=== PATIENT | male | born 1965 | race Caucasian/White ===

== ENCOUNTER 2018-12-14 21:36 | Emergency (ER) | payer SELFPAY ==
[2018-12-14 21:42] VITALS: BP 133/69; PULSE 78; RESP 16; TEMP 37.2; O2SAT 96
--- NOTE | 2018-12-14 21:54 | W.ED.GENAD ---
Discharge Plan Disposition Patient Disposition: HOME Condition: Improving Discharge Details Chief Complaint: Trauma Clinical Impression: Concussion, Contusion of back, Contusion of foot Primary Care Provider: Jim Santana. ED Provider: Josue Kelly Discharge Instructions Instructions: Concussion (ED), Contusion in Adults (ED) Additional Instructions: You were seen in the emergency department today for evaluation of injuries from a fall. You do not appear to have a fracture. Take Tylenol and ibuprofen every 6 hours as needed for discomfort. Return to the emergency department immediately if you develop any fevers, weakness, numbness, or for any other concerning or worsening symptoms at all. Referrals: Jim Santana. [Primary Care Provider] - Medical Decision Making <Yosef Escobar MD - Last Filed: 12/14/18 23:29> This patient is a 53-year-old male who fell off of a roof. He will need a CT scan of the head, neck, chest x-ray, lumbar spine x-ray, pelvic x-ray, x-ray of the right shoulder and right heel. He will then need to be reassessed. <Josue Kelly MD - Last Filed: 12/14/18 23:57> Patient signed out to me pending radiology reads of his films. He had presented after falling off his roof this afternoon. Laboratory studies are unremarkable. He has received IV Tylenol and IV Toradol and is feeling better. Imaging studies are all negative. Head and cervical spine CT negative. X-ray of the right shoulder, right heel, pelvis and lumbar spine all negative for trauma. Will give patient repeat dose of Toradol for total of 30 mg IV. Will discharge home with rest, activity as tolerated, ice, ibuprofen/acetaminophen and follow-up with primary care next week if not getting better. Return to ED for neurologic change, increasing pain, difficulty breathing, abdominal pain, other concerns or problems. Lab Data Lab results reviewed: Yes I reviewed the patient's lab results. HPI <Yosef Escobar MD - Last Filed: 12/14/18 23:29> I messed myself bad. This patient is a 53-year-old male who states that he fell off of his roof about 6-1/2 hours ago. He states that he landed on his right side, complains of right-sided shoulder pain, right heel pain, pelvic pain, lumbar spine pain, and believes he hit his head and neck. He denies any numbness or tingling. No other recent medical illness such as fevers, cough, vomiting or diarrhea. Moving around makes all the pain worse. It is a severe pain. It is fairly diffuse. It is sharp. Nothing has made it better. He did not take anything prior to arrival here. General Date/Time Provider Initiated Documentation: 12/14/18 21:54. Related Data Allergies Allergy/AdvReac Type Severity Reaction Status Date / Time No Known Allergies Allergy Unverified 08/23/15 14:41 General Stated Complaint: Trauma MINA: 2 <Josue Kelly MD - Last Filed: 12/14/18 23:57> I messed myself bad. This patient is a 53-year-old male who states that he fell off of his roof about 6-1/2 hours ago. He states that he landed on his right side, complains of right-sided shoulder pain, right heel pain, pelvic pain, lumbar spine pain, and believes he hit his head and neck. He denies any numbness or tingling. No other recent medical illness such as fevers, cough, vomiting or diarrhea. Moving around makes all the pain worse. It is a severe pain. It is fairly diffuse. It is sharp. Nothing has made it better. He did not take anything prior to arrival here. Review of Systems <Yosef Escobar MD - Last Filed: 12/14/18 23:29> Narrative: Gen: no fevers. Card: no chest pain. Resp: No cough, difficulty breathing. Abd: no vomiting, abd pain. The rest of the 10 point review of systems is negative except as described in the HPI and above in the ROS. PFSH <Yosef Escobar MD - Last Filed: 12/14/18 23:29> Surgical History (Updated 11/27/17 @ 14:34 by [facility] OR) Tonsillectomy 06/27/15 Social History Smoking/Tobacco Use Status: Current-Occasional Alcohol Intake: current Alcohol Intake frequency: a few times a week Drug use: Rarely Substance use type: marijuana Do you feel safe at home: Yes Do you feel safe in your relationship?: Yes Exam <Yosef Escobar MD - Last Filed: 12/14/18 23:29> Narrative Exam Narrative: Gen: alert, uncomfortable. Eyes: Pupils equal, reactive to light, EOMs intact. ENT: nose and ears normal, posterior pharynx without injection or swelling. Neck: tender to palpation. Lung: Clear to auscultation bilaterally, no respiratory distress. Card: RRR, normal S1, S2, no M/R/G. 2+ radial pulses bilaterally. Abd: soft, non-tender, no hepatosplenomegaly. Upper extremity: right shoulder is tender to palpation. 2+ radial pulses. Lower extremity: right calcaneal pain. Back: no tenderness. Neuro: speech normal, no gross motor deficits. Psych: alert and oriented to person, place time, normal affect. Skin: warm, intact. Course <Yosef Escobar MD - Last Filed: 12/14/18 23:29> Vital Signs Vital signs: Vital Signs Temperature 37.2 C 12/14/18 21:42 Pulse 78 12/14/18 21:42 Respiratory Rate 16 12/14/18 21:42 Blood Pressure 133/69 12/14/18 21:42 Pulse Oximetry 96 12/14/18 21:42 Temperature 37.2 C 12/14/18 21:42 Temperature Source Skin 12/14/18 21:42 Pulse 78 12/14/18 21:42 Respiratory Rate 16 12/14/18 21:42 Blood Pressure 133/69 12/14/18 21:42 Blood Pressure Position Sitting 12/14/18 21:42 Pulse Oximetry 96 12/14/18 21:42 Oxygen Delivery Method Room Air 12/14/18 21:42 Oxygen Flow Rate 0 12/14/18 21:42 Pain Level 10 12/14/18 21:42 Sign Out <Yosef Escobar MD - Last Filed: 12/14/18 23:29> Sign Out Data: Sign Out Comment: Patient will be signed out to overnight physician pending x-ray results. Patient is feeling better and likely will be able to go home if x-rays are normal once he is able to ambulate. Last updated by Yosef Escobar MD at 12/14/18 23:28
--- NOTE | 2018-12-14 21:59 | DI.RAD_ITS ---
EXAM: XR HEEL RT OS CALCIS INDICATION: fall off roof.. COMPARISON: No exams were available for comparison TECHNIQUE: 2D digital imaging was performed. FINDINGS: No fracture is identified. The there is some spurring at the Achilles insertion. There is mild spur ring at the talonavicular joint. IMPRESSION: No acute abnormality.
--- NOTE | 2018-12-14 21:59 | DI.RAD_ITS ---
EXAM: XR SHOULDER RT COMPLETE 2+V INDICATION: fall off roof.. COMPARISON: No exams were available for comparison TECHNIQUE: 2D digital imaging was performed. FINDINGS: No fracture or dislocation is seen. There are mild degenerative changes of the AC joint and glenohum eral joint. IMPRESSION: No acute abnormality.
--- NOTE | 2018-12-14 21:59 | DI.CT_ITS ---
EXAM: CT HEAD CERVICAL SPINE WO CLINICAL HISTORY: fall off roof. TECHNIQUE: Noncontrast COMPARISON: NECK WITH CONTRAST from 04/25/2015 FINDINGS: Head CT: No intracranial hemorrhage or skull fracture is seen. The ventricles are normal in size. There is no evidence of mass or infarct. There is a large mucous retention cyst in the left maxillar y sinus. There is mild mucous retention in the ethmoid and right maxillary sinus. The orbits are un remarkable. The mastoid air cells appear clear. C SPINE: There are minimal degenerative changes. No fracture or subluxation is seen. The airway is unremarkable. IMPRESSION: Sinus disease. No acute abnormality. Minimal degenerative changes. No acute abnormality.
--- NOTE | 2018-12-14 21:59 | DI.RAD_ITS ---
EXAM: XR LUMBAR SPINE AP, LAT INDICATION: fall off roof.. COMPARISON: No exams were available for comparison TECHNIQUE: 2D digital imaging was performed. FINDINGS: Is no evidence of fracture or or subluxation. No spondylolysis or spondylolisthesis is seen. There is no significant scoliosis. The disc spaces are well maintained. There is some spurring from the e ndplates, greatest in the lower thoracic region. IMPRESSION: Degenerative changes. No acute abnormality.
--- NOTE | 2018-12-14 21:59 | DI.RAD_ITS ---
EXAM: XR CHEST 2V PA LATERAL INDICATION: fall off roof.. COMPARISON: No exams were available for comparison TECHNIQUE: 2D digital imaging was performed. FINDINGS: The heart size is normal. The lungs appear clear. No pneumothorax, spine are or rib fracture is vis ible. IMPRESSION: Negative chest x-ray
--- NOTE | 2018-12-14 22:07 | DI.RAD_ITS ---
EXAM: XR PELVIS AP INDICATION: fall off roof.. COMPARISON: No exams were available for comparison TECHNIQUE: 2D digital imaging was performed. FINDINGS: No fracture or dislocation is seen. There is some spurring from the acetabula but no significant mau nt space narrowing. There is no widening of the SI joints or pubic symphysis. IMPRESSION: Mild degenerative changes. No acute abnormality.
[2018-12-14 22:22] LABS: Abs Immature Grans 0.02 k/cumm (0.0-0.09); Absolute Basophil Count 0.02 k/cumm (0.0-0.2); Absolute Eosinophil Count 0.07 k/cumm (0.0-0.7); Absolute Lymphocyte Count 1.36 k/cumm (1.2-3.4); Basophils % 0.2; Eosinophils % 0.6; HCT 43.9 % (40.0-50.0); HGB 15.3 g/dL (13.5-17.5); Immature Grans % 0.2; Lymphocytes % 12.1; Mean Corp. HGB Concentration 34.9 g/dL (32.0-36.0); Mean Corpuscular Hemoglobin 31.7 pg (27.0-33.0); Mean Corpuscular Volume 90.9 fL (80-95); Mean Platelet Volume 8.9 fL (8.0-11.0); Monocytes % 6.1; Neutrophils % 80.8; Platelet Count 303 x1000/uL (130-400); RBC 4.83 m/cumm (4.50-6.00); RBC Distribution Width 13.3 % (11.8-14.1); White Blood Cell Count 11.23 k/cumm (4.4-10.8)
[2018-12-14] MEDS: Ketorolac 15 MG/ML VIAL IVP ×2 (22:24→23:49)
[2018-12-14] MEDS: Acetaminophen 500 MG TAB 1000 MG PO (22:24)
[2018-12-14 22:26] LABS: Absolute Monocyte Count 0.69 k/cumm (0.11-0.7); Absolute Neutrophil Count 9.07 k/cumm (1.2-6.7)
[2018-12-14 22:36] LABS: ALT 38 U/L (16-63); AST 36 U/L (15-37); Alkaline Phosphatase 79 U/L (46-116); Anion Gap 12.4 mmol/L (3-11); BUN 16 mg/dL (7-18); Bilirubin, Total 0.4 mg/dL (0.2-1.0); CO2 25.6 mmol/L (21.0-32.0); CREATININE 1.28 mg/dL (0.70-1.30); Calcium 8.7 mg/dL (8.5-10.1); Chloride 103 mmol/L (98-107); Estimated GFR 58.79 (mL/min/1.73m2); Glucose 133 mg/dL (70-100); Magnesium 1.8 mg/dL (1.8-2.4); Potassium 3.8 mmol/L (3.5-5.1); Sodium 141 mmol/L (136-145); Total Protein 7.4 g/dL (6.4-8.2)
[2018-12-14 22:37] LABS: ETHANOL BLOOD < 3.0 mg/dL (<3)
--- NOTE | 2018-12-14 23:21 | DI.VRAD_ITS ---
PROCEDURE INFORMATION: Exam: CT Head Without Contrast Exam date and time: 12/14/2018 10:10 PM Clinical history: 53 years old, male; Neck pain; Patient HX: Fall from roof, approximately 15 ft. TECHNIQUE: Imaging protocol: Computed tomography of the head without contrast. Radiation optimization: All CT scans at this facility use at least one of these dose optimization techniques: automated exposure control; mA and/or kV adjustment per patient size (includes targeted exams where dose is matched to clinical indication); or iterative reconstruction. COMPARISON: No relevant prior studies available. FINDINGS: The ventricles, sulci and basilar cisterns are normal for the patient's stated age. There is no evidence for acute infarct. There is no evidence for mass. There is no hemorrhage. There are no extra-axial fluid collections. There is no midline shift. The skull is intact. There is some patchy opacification of the paranasal sinuses. There may be a retention cyst or polyp in the left maxillary sinus. There is atherosclerotic change of the cavernous carotid arteries. IMPRESSION: No evidence for acute intracranial injury. PROCEDURE INFORMATION: Exam: CT Cervical Spine Without Contrast Exam date and time: 12/14/2018 10:10 PM Clinical history: 53 years old, male; Neck pain; Patient HX: Fall from roof, approximately 15 ft. TECHNIQUE: Imaging protocol: Computed tomography images of the cervical spine without contrast. Radiation optimization: All CT scans at this facility use at least one of these dose optimization techniques: automated exposure control; mA and/or kV adjustment per patient size (includes targeted exams where dose is matched to clinical indication); or iterative reconstruction. COMPARISON: No relevant prior studies available. FINDINGS: The vertebral bodies are normally aligned. There is no evidence of fracture or subluxation. The vertebral bodies are of normal height. The disc spaces are well-maintained. There is some minimal anterior endplate spurring. The prevertebral soft tissues and the predental space are unremarkable. There are mild degenerative changes about the C1-2 articulation. There are degenerative changes of the facet joints and uncovertebral joints. There is no significant central stenosis. There is no evidence for epidural hematoma. The visualized soft tissues are unremarkable. IMPRESSION: There is no evidence of fracture or subluxation. Dictated and Authenticated by: Jose Haro MD. Ordering:ANA Navas MD
--- NOTE | 2018-12-14 23:22 | DI.VRAD_ITS ---
PROCEDURE INFORMATION: Exam: XR Right Calcaneus Exam date and time: 12/14/2018 11:00 PM Clinical history: 53 years old, male; Pain; Heel; Right; Patient HX: Fall TECHNIQUE: Imaging protocol: XR of the Right calcaneus. Views: 2 or more views. COMPARISON: No relevant prior studies available. FINDINGS: There is no evidence of fracture. The joint spaces are well maintained. There is no bony destruction. There is an Achilles tendon spur of the calcaneus. IMPRESSION: No evidence of fracture. Dictated and Authenticated by: Jose Haro MD. Ordering:ANA Navas MD
--- NOTE | 2018-12-14 23:22 | NUR.NOTE ---
Pt reports approx 15ft fall off roof at 1630. Was putting tar on roof, slipped on ice and fell, landed on buttocks. Denies head strike, denies LOC, denies neck pain. Pt reports pain to right shoulder, heel and low back. GARZA, +distal pulses. Ambulated in from parking lot, drove self to hospital. #20 LAC, labs drawn.
--- NOTE | 2018-12-14 23:31 | DI.VRAD_ITS ---
PROCEDURE INFORMATION: Exam: XR Chest, 2 Views Exam date and time: 12/14/2018 11:24 PM Clinical history: 53 years old, male; Chest pain; Type not specified; Patient HX: Trauma, fall off roof TECHNIQUE: Imaging protocol: XR of the chest Views: 2 views. COMPARISON: No relevant prior studies available. FINDINGS: There are no old studies available for comparison. The lungs are clear of infiltrate. There are no pleural effusions or pneumothorax. The heart size and pulmonary vascularity are normal. No rib fractures are seen. There are degenerative changes of the thoracic spine. IMPRESSION: No active disease. Dictated and Authenticated by: Jose Haro MD. Ordering:ANA Navas MD
--- NOTE | 2018-12-14 23:32 | DI.VRAD_ITS ---
PROCEDURE INFORMATION: Exam: XR Lumbosacral Spine, 2 or 3 Views Exam date and time: 12/14/2018 11:09 PM Clinical history: 53 years old, male; Low back pain; Patient HX: Pain S/P fall TECHNIQUE: Imaging protocol: XR of the lumbosacral spine, 2 or 3 views. COMPARISON: No relevant prior studies available. FINDINGS: The vertebral bodies are normally aligned. There are no fractures or subluxations. The vertebral bodies are of normal height. There is disc space narrowing at L3-4. There is endplate spurring throughout the lumbar spine. There are degenerative changes of the facet joints. There is no bony destruction. IMPRESSION: No evidence of fracture, subluxation or acute bony destruction. Dictated and Authenticated by: Jose Haro MD. Ordering:ANA Navas MD
--- NOTE | 2018-12-14 23:32 | DI.VRAD_ITS ---
PROCEDURE INFORMATION: Exam: XR Pelvis Exam date and time: 12/14/2018 11:10 PM Clinical history: 53 years old, male; Pelvic pain; Patient HX: Pain S/P fall TECHNIQUE: Imaging protocol: XR pelvis. Views: 1 or 2 view. COMPARISON: CR XR LUMBAR SPINE AP, LAT 12/14/2018 11:04 PM FINDINGS: There is no evidence of fracture. The joint spaces are well maintained. There is no bony destruction. IMPRESSION: No evidence of fracture. Dictated and Authenticated by: Jose Haro MD. Ordering:ANA Navas MD
--- NOTE | 2018-12-14 23:33 | DI.VRAD_ITS ---
PROCEDURE INFORMATION: Exam: XR Right Shoulder Exam date and time: 12/14/2018 11:23 PM Clinical history: 53 years old, male; Pain; Shoulder; Right TECHNIQUE: Imaging protocol: XR Right shoulder. Views: 2 or more views. COMPARISON: No relevant prior studies available. FINDINGS: There is no evidence of fracture. The joint spaces are well maintained. There is no bony destruction. The glenohumeral joint is unremarkable. There are mild degenerative changes of the acromioclavicular joint. IMPRESSION: 1. No evidence of fracture. 2. No acute bony abnormality. Dictated and Authenticated by: Jose Haro MD. Ordering:ANA Navas MD
[2018-12-14 23:52] VITALS: BP 127/64; PULSE 74; RESP 16; O2SAT 96
--- NOTE | 2018-12-14 23:58 | NUR.NOTE ---
Med a/o. IV removed. Discharge instructions reviewed with verbal understanding. Aware to f/u with pcp as needed.
== END 2018-12-15 00:05 | disposition home or self-care (01) ==
PROVIDERS: Emergency Medicine; Emergency Provider Emergency Medicine; PCP Family Medicine
DX: S06.0X0A Concussion without loss of consciousness, initial encounter (principal); S30.0XXA Contusion of lower back and pelvis, initial encounter; S90.31XA Contusion of right foot, initial encounter; M25.511 Pain in right shoulder; W13.2XXA Fall from, out of or through roof, initial encounter
CPT/HCPCS: 36415; 80053; 96374; 96376; 99284; 70450; 71046; 72100; 72125; 72170; 73030; 73650; 80320; 83735; 85025; J1885

== ENCOUNTER 2021-10-23 15:21 | Outpatient (REF) | payer SELFPAY | END 2021-10-23 15:22 | disposition home or self-care (01) | LOC: LBN 15:21 | PROVIDERS: PCP Family Medicine; Visit Provider Physician Assistant | DX: J02.9 Acute pharyngitis, unspecified (principal) | CPT/HCPCS: 87070 ==

== ENCOUNTER 2022-06-03 13:52 | Emergency (ER) | payer SELFPAY ==
[2022-06-03] VITALS (23 sets, daily range): BP systolic 116–188; BP diastolic 66–104; PULSE 61–72; RESP 10–20; TEMP 36.6; O2SAT 98
--- NOTE | 2022-06-03 13:45 | RT.EKG_ITS ---
APPROVED REPORT Exam: Resting ECG Reason for Exam: chest tighness Patient Location: E HR:67 bpm ECG Measurements Heart Rate 67 AXIS MA 154 P 38 QRSd 97 QRS 49 QT 380 T 20 QTc 401 Conclusion Sinus rhythm...normal P axis, V-rate 60- 99. Sinus. Normal axis. No STEMI. I have reviewed and interpreted ECG and agree with software generated interpretation.
--- NOTE | 2022-06-03 14:03 | ED.GENADUL_ITS ---
Discharge Plan Disposition Patient Disposition: Home Condition: Stable Discharge Details Clinical Impression: Bleeding hemorrhoids, Abdominal bloating, Chest pain Primary Care Provider: Jim Santana ED Provider: Elaine Bobby Home Meds and New Rx's Prescriptions: No Action No Known Home Meds Discharge Instructions Instructions: Chest Pain (ED), Hemorrhoids (ED), Gas and Bloating (ED) Additional Instructions: Your blood tests, EKG and imaging today are reassuring and show no evidence of acute concerning findings. Your CT scan noted bilateral adrenal nodules. You can follow-up with your primary care doctor for referral for outpatient CT abdomen and pelvis in 12 months for reassessment of these nodules. Your rectal bleeding is likely due to hemorrhoids noted on exam today. It is recommended to use sitz bath's and stool softeners which can help with reducing and preventing hemorrhoids. Drink plenty of fluids and get plenty of rest. Call your primary care doctor's office tomorrow to schedule follow-up appointment for reevaluation and for referral for outpatient stress test if your chest pain does not improve or worsens. You can follow-up with your pricer at [place] or general surgery here to schedule an outpatient colonoscopy and possibly upper endoscopy if indicated. Return immediately to the emergency department if you develop any worsening or new concerning symptoms. Referrals: Mei Nolasco MD [ [facility] STAFF PHYSICIAN] - Discharge Data Discharge Date/Time-TO BE ENTERED AT DEPARTURE: 06/03/22 17:26 Discharge Physician: Elaine Bobby Medical Decision Making 1400 -- 57-year-old male with a history of obesity, anal fissures and hemorrhoids presents for dark red blood in the stool and toilet with bowel movement today followed by left lower quadrant abdominal pressure and left chest pressure and lightheadedness today. EKG notes a rate of 67, sinus, normal axis and no acute ischemic findings. His blood pressure is significantly elevated at 188/103. Remainder vitals within normal limits. Repeat BP 132/68. Patient has significant abdominal distention which she reports has been getting progressively worse over the past few months. He has left lower quadrant tenderness. Upon inspection of rectum, he has a nonthrombosed hemorrhoid that is approximately 1 x 2 cm with no active bleeding noted. Digital exam limited by pain from external hemorrhoid and unable to obtain stool for Hemoccult which was negative. Suspect the rectal bleeding is secondary to external and possibly internal hemorrhoids. Also consider diverticulitis. History and presentation does not appear consistent with PE, ACS or dissection. Considering his morbid obesity and hypertension, will refer for CT chest, abdomen and pelvis, screening labs. 1620 --Labs and imaging reviewed. Normal white blood cell count. Normal hemoglobin. Troponin within normal limits. CT chest, abdomen and pelvis negative for acute findings. Of note were bilateral adrenal nodules of which patient was informed and recommend repeat CT in 12 months for reassessment. Patient reassessed and he feels much better and feels comfortable going home. Advised to use sitz bath's and stool softeners for bleeding hemorrhoids. Ad vised to follow-up with the primary care doctor for reevaluation and for referral for stress test if his chest pain persists or worsens. Also discussed scheduling a colonoscopy with consideration for EGD. Usual and customary return precautions given prior to discharge. Medical Records Medical records reviewed: Yes I reviewed the patient's medical records. Imaging Data Radiologic Study: Radiologist's impression: CTA Chest With Contrast Exam date and time: 06/03/2022 3:18 PM Age: 57 years old Clinical indication: Other: Left chest pain, dizzy, llq pain, rectal bleeding TECHNIQUE: Imaging protocol: Computed tomographic angiography of the chest with contrast. 3D rendering (Not supervised by radiologist): MIP and/or 3D reconstructed images were created by the technologist. Radiation optimization: All CT scans at this facility use at least one of these dose optimization techniques: automated exposure control; mA and/or kV adjustment per patient size (includes targeted exams where dose is matched to clinical indication); or iterative reconstruction. Contrast material: OMNIPAQUE 350; Contrast volume: 100 ml; Contrast route: INTRAVENOUS (IV);? COMPARISON: CR XR CHEST 2V PA LATERAL 12/14/2018 11:17 PM FINDINGS: Pulmonary arteries: Normal. No pulmonary emboli. Aorta: Unremarkable. No aortic aneurysm. No aortic dissection. Lungs: Unremarkable. No consolidation. No masses. Pleural spaces: Unremarkable. No pneumothorax. No pleural effusion. Heart: Unremarkable. No cardiomegaly. No pericardial effusion. Lymph nodes: Calcified right hilar and right paratracheal lymph nodes. No enlarged lymph nodes. Bones/joints: Unremarkable. No acute fracture. Soft tissues: Unremarkable. IMPRESSION: No acute findings. CT Abdomen And Pelvis With Contrast Exam date and time: 06/03/2022 3:18 PM Age: 57 years old Clinical indication: Other: Left chest pain, dizzy, llq pain, rectal bleeding TECHNIQUE: Imaging protocol: Computed tomography of the abdomen and pelvis with contrast. Radiation optimization: All CT scans at this facility use at least one of these dose optimization techniques: automated exposure control; mA and/or kV adjustment per patient size (includes targeted exams where dose is matched to clinical indication); or iterative reconstruction. Contrast material: OMNIPAQUE 350; Contrast volume: 100 ml; Contrast route: INTRAVENOUS (IV);? COMPARISON: CR XR PELVIS AP 12/14/2018 11:08 PM FINDINGS: Liver: The liver is enlarged and of decreased attenuation consistent with fatty infiltration. There are no cysts, masses or dilated intrahepatic ducts. Gallbladder and bile ducts: The gallbladder is contracted. There is no common bile duct dilation. Pancreas: Normal. No ductal dilation. Spleen: Normal. No splenomegaly. Adrenal glands: Right adrenal gland has a 1.8 cm well-circumscribed nodule. The left adrenal gland has a 1 cm circumscribed nodule. Kidneys and ureters: Normal. No hydronephrosis. Stomach and bowel: Unremarkable. No obstruction. No mucosal thickening. There uncomplicated colonic diverticula. No definite pooling of radiodense material within the bowel. Appendix: A normal appendix is identified. Intraperitoneal space: Unremarkable. No free air. No significant fluid collection. Vasculature: Unremarkable. No abdominal aortic aneurysm. Lymph nodes: Unremarkable. No enlarged lymph nodes. Urinary bladder: The bladder is decompressed. Reproductive: Unremarkable as visualized. Bones/joints: The spine demonstrates moderate degenerative changes at multiple levels. Soft tissues: Tiny fat containing umbilical hernia. Other findings: No intraluminal stones or wall thickening. IMPRESSION: 1. ? No acute findings. 2. ? Bilateral adrenal findings. In the absence known malignancy consider 12 month follow-up adrenal CT. ([facility] 3. ? Hepatic steatosis. 4. ? Uncomplicated colonic diverticulosis. Lab Data Lab results reviewed: Yes I reviewed the patient's lab results. Labs: Laboratory Tests Range/Units 06/03/22 06/03/22 06/03/22 14:05 14:05 14:05 WBC (4.4-10.8) 10^3/uL 7.67 RBC (4.36-5.78) 10^6/uL 5.08 Hgb (13.5-17.5) g/dL 16.2 Hct (40.0-50.0) % 46.2 MCV (80-95) fL 91 MCH (27.0-33.0) pg 31.9 MCHC (32.0-36.0) % 35.1 RDW (11.8-14.1) % 13.1 Plt Count (130-400) 10^3/uL 308 MPV (8.0-11.0) fL 8.8 Immature Gran % 0.3 Neutrophils % 55.8 Lymphocytes % 33.1 Monocytes % 8.3 Eosinophils % 1.8 Basophils % 0.7 Nucleated RBC % (0.0-0.3) % 0.0 Absolute Neutrophils (1.2-6.7) 10^3/uL 4.28 Absolute Lymphocytes (1.2-3.4) 10^3/uL 2.54 Absolute Monocytes (0.1-0.8) 10^3/uL 0.64 Absolute Eosinophils (0.0-0.7) 10^3/uL 0.14 Absolute Basophils (0.0-0.2) 10^3/uL 0.05 Sodium (136-145) mmol/L 138 Potassium (3.5-5.1) mmol/L 4.2 Chloride (98-107) mmol/L 103 Carbon Dioxide (21.0-32.0) mmol/L 31.4 Anion Gap (3-11) mmol/L 3.6 BUN (7-18) mg/dL 19 H Creatinine (0.70-1.30) mg/dL 1.4 H Est GFR (CKD-EPI 2020) (mL/min/1.73m2) 58.62 Glucose (74-106) mg/dL 142 H Calcium (8.5-10.1) mg/dL 9.0 Magnesium (1.8-2.4) mg/dL 2.2 Total Bilirubin (0.2-1.0) mg/dL 0.3 AST (15-37) U/L 29 ALT (16-63) U/L 55 Alkaline Phosphatase (46-116) U/L 94 Troponin I (<or=60) ng/L < 50 Total Protein (6.4-8.2) g/dL 7.4 Albumin (3.4-5.0) g/dL 4.0 Lipase (16-77) U/L 67 ECG Data Attestation: I personally reviewed and interpreted this ECG (s) as follows: Interpretation: rate of 67, sinus, normal axis, no stemi. HPI General Mode of arrival: ambulatory . Date/Time Provider Initiated Documentation: 06/03/22 13:56 . Limitations to Documentation: no limitations . Information obtained by: patient . HPI Narrative: Patient is a 57-year-old male who presents with dark red rectal bleeding noted today while having a bowel movement. Patient states he could not see the color of the stool as it was mainly dark red mixed with stool and in the toilet. He states he has also noted some left lower abdominal pressure today which is currently 1/10. He states after this episode of bleeding he also developed left-sided chest pressure and lightheadedness while sitting. He states this started with feeling like my heart was pounding and then developed pressure in the left side of his chest. He states the pressure is currently 2/10. He states almost 1 week ago he had a brief episode of dark red rectal bleeding which then resolved on its own. He states he has had some dark red spotting with bowel movements this week but no significant bleeding until today. Patient does report that he has had rectal bleeding in the past and told that this was due to anal fissures. Patient denies any rectal pain. He denies any fever, vomiting or diarrhea. He has not taking any anticoagulation. He states he had a colonoscopy 6 years ago at [place] and was told that he should follow-up for a repeat colonoscopy 5 years after that procedure but states he did not. He states his sister was recently diagnosed with rectal cancer. Patient also reports that he drank a pint and a half of rum last night. He states he drinks usually a few days a week. He denies any drug use. Related Data Home Medications Medication Instructions Recorded Confirmed Unknown [No Known Home Meds] 06/03/22 06/03/22 Allergies Allergy/AdvReac Type Severity Reaction Status Date / Time No Known Allergies Allergy Unverified 06/03/22 14:02 General Stated Complaint: GenMedical MINA: 2 Review of Systems All systems reviewed & are unremarkable except as noted in HPI and below Constitutional Constitutional: Reports as per HPI, Denies chills and Denies fever(s) Eyes Eyes: Denies blurry vision ENT Ears, Nose, Mouth, and Throat: Reports dizziness, Denies sore throat and Denies throat swelling Cardiovascular Cardiovascular: Reports chest pain and Denies dyspnea Respiratory Respiratory: Denies cough and Denies dyspnea Gastrointestinal Gastrointestinal: Reports abdominal pain, Denies diarrhea and Denies vomiting Comments: Dark red/maroon blood in stool and toilet. Genitourinary Genitourinary: Denies hematuria and Denies dysuria Musculoskeletal Musculoskeletal: Denies back pain and Denies numbness Integumentary/Breasts Skin/Breast: Denies lesions and Denies rash Neurologic Neurologic: Reports dizziness, Denies localized weakness and Denies numbness Allergic/Immunologic Allergic/Immunologic: Denies throat swelling PFSH All Active Problems (Updated 06/03/22 @ 17:19 by Elaine Bobby DO) Bleeding hemorrhoids (Acute) Abdominal bloating (Acute) Chest pain (Acute) Right shoulder strain (Acute) Fall (Acute) Medical History (Updated 06/03/22 @ 17:19 by Elaine Bobby DO) Anal fissure Hemorrhoids Surgical History Tonsillectomy 06/27/15 Social History Smoking/Tobacco Use Status: Current-Occasional Tobacco Type: cigarettes Smoking risk assessment performed?: Yes Alcohol Intake: current Alcohol Intake frequency: a few times a week Drug use: Occasionally Substance use type: marijuana Do you feel safe at home: Yes Do you feel safe in your relationship?: Yes Exam Const General: cooperative and no acute distress Orientation: alert, awake and oriented x3 HENOR Head: normal to inspection Ears: hearing grossly normal bilaterally and external ears normal Face and sinus: normal facial exam Eyes General: appearance normal, both eyes and all related structures Pupils: PERRL EOM: EOM intact bilaterally Neck Neck: normal visual inspection and No submandibular swelling Lymphatic: no lymphadenopathy noted Chest Chest: normal inspection of the chest and no tenderness Resp Effort & Inspection: normal respiratory effort and able to speak in complete sentences Auscultation: clear to auscultation bilaterally Cardio Rate: regular rate Rhythm: regular rhythm GI Inspection: normal to inspection Palpation: soft, not firm, not rigid and tender in the LLQ Auscultation: hypoactive bowel sounds Rectal Exam: heme negative stool and hemorrhoids (tender) Skin General skin exam: no rashes or lesions noted Neuro General: patient alert, patient awake and patient oriented x3 Cognition: normal cognition Speech: speech normal Motor: muscle tone normal throughout Sensory Exam: no sensory deficits noted Extrem General: normal to inspection, full ROM, capillary refill normal, no calf tenderness bilaterally and no edema Psych Appearance: grossly normal Mental Status: mental status grossly normal Speech and Movement: speech and movement normal Affect: normal affect Course Vital Signs Vital signs: Vital Signs Temperature 98 F 06/03/22 13:55 Pulse 69 06/03/22 13:55 Respiratory Rate 20 06/03/22 13:55 Blood Pressure 188/103 H 06/03/22 13:55 Pulse Oximetry 98 06/03/22 13:55 Temperature 98 F 06/03/22 13:55 Temperature Source Oral 06/03/22 13:55 Pulse 69 06/03/22 13:55 Respiratory Rate 20 06/03/22 13:55 Blood Pressure 188/103 H 06/03/22 13:55 Blood Pressure Position Sitting 06/03/22 13:55 Pulse Oximetry 98 06/03/22 13:55 Oxygen Delivery Method Room Air 06/03/22 13:55 Oxygen Flow Rate 0 06/03/22 13:55 Pain Level 0 06/03/22 13:55
[2022-06-03 14:19] LABS: Abs Immature Grans 0.02 10^3/uL (0.0-0.06); Absolute Basophil Count 0.05 10^3/uL (0.0-0.2); Absolute Eosinophil Count 0.14 10^3/uL (0.0-0.7); Absolute Lymphocyte Count 2.54 10^3/uL (1.2-3.4); Absolute Monocyte Count 0.64 10^3/uL (0.1-0.8); Absolute Neutrophil Count 4.28 10^3/uL (1.2-6.7); Basophils % 0.7; Eosinophils % 1.8; HCT 46.2 % (40.0-50.0); HGB 16.2 g/dL (13.5-17.5); Immature Grans % 0.3; Lymphocytes % 33.1; MCH 31.9 pg (27.0-33.0); MCHC 35.1 % (32.0-36.0); MCV 91 fL (80-95); MPV 8.8 fL (8.0-11.0); Monocytes % 8.3; Neutrophils % 55.8; Platelet Count 308 10^3/uL (130-400); RBC 5.08 10^6/uL (4.36-5.78); RDW 13.1 % (11.8-14.1); RDW-SD 44.2 fL; WBC 7.67 10^3/uL (4.4-10.8)
[2022-06-03 14:30] LABS: Lipase 67 U/L (16-77)
--- NOTE | 2022-06-03 14:30 | DI.CT_ITS ---
Exam(s) CT CHEST PE ABD PELVIS W EXAM: CT CHEST PE ABD PELVIS W CLINICAL HISTORY: L chest pain, dizzy, LLQ pain, rectal bleeding. TECHNIQUE: Imaging Protocol: Axial CT angiography was performed with multi-slice acquisition and mu lti-planar and/or 3D reconstructions. CONTRAST MATERIAL: Intravenous: Omnipaque 350 Contrast volume:100 ml COMPARISON: No exams were available for comparison FINDINGS: CHEST: Pulmonary Arteries: No evidence of filling defect to suggest pulmonary emboli. Tracheobronchial tree: Patent where visualized. Mediastinum and Isaura: Calcified nodes consistent with old healed granulomatous disease.. Pulmonary parenchyma: No consolidation or dominant measurable mass. No architectural distortion. Pleura: No effusion or pneumothorax. Heart: The heart is not dilated. No coronary artery calcifications are seen. Aorta: Thoracic aorta non-dilated. Bones: Degenerative changes in the spine. Tubes, Catheters, and Lines: None ABDOMEN: Liver: Normal density. No measurable mass. Portal, Superior Mesenteric, and Splenic Veins: Unremarkable. Gallbladder and Biliary Tract: No radiodense calculus or dilation. Pancreas: Normal density, no abnormal calcifications or inflammatory process. Spleen: Normal. Adrenals: Tiny nodules, too small to characterize. Kidneys: Normal size, contour and axis. No radiodense stones or obstructive uropathy. No masses seen. Abdominal Aorta: Abdominal portion non-dilated. Bowel: Diverticulosis. No evidence of diverticulitis. Normal quantity of stool. Small bowel unrema rkable. No obstruction or bowel wall thickening. Appendix is unremarkable. Peritoneal Cavity: No ascites, collection or mesenteric inflammatory response. Lymph Nodes: Within normal limits. Bones: Degenerative changes. Soft Tissues: Unremarkable. PELVIS: Bladder: Nearly empty. Not well evaluated. Reproductive Organs: Unremarkable as visualized. Lymph Nodes: Within normal limits. Bones: Mild degenerative changes. IMPRESSION: 1. No evidence of pulmonary embolism or other acute abnormality in the chest. 2. No acute abdominal or pelvic process. RADIATION DOSE DELIVERED: 1,819.63mGy.cm Total DLP DATA REPOSITORY: All CT scans at this facility are submitted to the National Radiology Data Registry (NRDR) Dose Index Registry (DIR) with the [employer] (ACR). RADIATION OPTIMIZATION: All CT scans at this facility use at least one of these dose optimization te chniques: automated exposure control; mA and/or kV adjustment per patient size (includes targeted exa ms where dose is matched to clinical indication); or iterative reconstruction.
[2022-06-03 14:46] LABS: ALT 55 U/L (16-63); AST 29 U/L (15-37); Alkaline Phosphatase 94 U/L (46-116); Anion Gap 3.6 mmol/L (3-11); BUN 19 mg/dL (7-18); Bilirubin, Total 0.3 mg/dL (0.2-1.0); CO2 31.4 mmol/L (21.0-32.0); CREATININE 1.4 mg/dL (0.70-1.30); Chloride 103 mmol/L (98-107); Estimated GFR 58.62 (mL/min/1.73m2); Glucose 142 mg/dL (74-106); Magnesium 2.2 mg/dL (1.8-2.4); Potassium 4.2 mmol/L (3.5-5.1); Sodium 138 mmol/L (136-145); Total Protein 7.4 g/dL (6.4-8.2); Troponin I < 50 ng/L (<or=60)
[2022-06-03] MEDS: Omnipaque 350 MG/ML 100 ML BTL IJ (15:17)
[2022-06-03] MEDS: Normal Saline - Diluent 50 ML VIAL IJ (15:18)
[2022-06-03] MEDS: ACETAMINOPHEN 1,000 MG/100 ML BTL 400 MG IVPB (15:40)
--- NOTE | 2022-06-03 16:05 | DI.VRAD_ITS ---
PROCEDURE INFORMATION: Exam: CTA Chest With Contrast Exam date and time: 06/03/2022 3:18 PM Age: 57 years old Clinical indication: Other: Left chest pain, dizzy, llq pain, rectal bleeding TECHNIQUE: Imaging protocol: Computed tomographic angiography of the chest with contrast. 3D rendering (Not supervised by radiologist): MIP and/or 3D reconstructed images were created by the technologist. Radiation optimization: All CT scans at this facility use at least one of these dose optimization techniques: automated exposure control; mA and/or kV adjustment per patient size (includes targeted exams where dose is matched to clinical indication); or iterative reconstruction. Contrast material: OMNIPAQUE 350; Contrast volume: 100 ml; Contrast route: INTRAVENOUS (IV); COMPARISON: CR XR CHEST 2V PA LATERAL 12/14/2018 11:17 PM FINDINGS: Pulmonary arteries: Normal. No pulmonary emboli. Aorta: Unremarkable. No aortic aneurysm. No aortic dissection. Lungs: Unremarkable. No consolidation. No masses. Pleural spaces: Unremarkable. No pneumothorax. No pleural effusion. Heart: Unremarkable. No cardiomegaly. No pericardial effusion. Lymph nodes: Calcified right hilar and right paratracheal lymph nodes. No enlarged lymph nodes. Bones/joints: Unremarkable. No acute fracture. Soft tissues: Unremarkable. IMPRESSION: No acute findings. PROCEDURE INFORMATION: Exam: CT Abdomen And Pelvis With Contrast Exam date and time: 06/03/2022 3:18 PM Age: 57 years old Clinical indication: Other: Left chest pain, dizzy, llq pain, rectal bleeding TECHNIQUE: Imaging protocol: Computed tomography of the abdomen and pelvis with contrast. Radiation optimization: All CT scans at this facility use at least one of these dose optimization techniques: automated exposure control; mA and/or kV adjustment per patient size (includes targeted exams where dose is matched to clinical indication); or iterative reconstruction. Contrast material: OMNIPAQUE 350; Contrast volume: 100 ml; Contrast route: INTRAVENOUS (IV); COMPARISON: CR XR PELVIS AP 12/14/2018 11:08 PM FINDINGS: Liver: The liver is enlarged and of decreased attenuation consistent with fatty infiltration. There are no cysts, masses or dilated intrahepatic ducts. Gallbladder and bile ducts: The gallbladder is contracted. There is no common bile duct dilation. Pancreas: Normal. No ductal dilation. Spleen: Normal. No splenomegaly. Adrenal glands: Right adrenal gland has a 1.8 cm well-circumscribed nodule. The left adrenal gland has a 1 cm circumscribed nodule. Kidneys and ureters: Normal. No hydronephrosis. Stomach and bowel: Unremarkable. No obstruction. No mucosal thickening. There uncomplicated colonic diverticula. No definite pooling of radiodense material within the bowel. Appendix: A normal appendix is identified. Intraperitoneal space: Unremarkable. No free air. No significant fluid collection. Vasculature: Unremarkable. No abdominal aortic aneurysm. Lymph nodes: Unremarkable. No enlarged lymph nodes. Urinary bladder: The bladder is decompressed. Reproductive: Unremarkable as visualized. Bones/joints: The spine demonstrates moderate degenerative changes at multiple levels. Soft tissues: Tiny fat containing umbilical hernia. Other findings: No intraluminal stones or wall thickening. IMPRESSION: 1. No acute findings. 2. Bilateral adrenal findings. In the absence known malignancy consider 12 month follow-up adrenal CT. (Reference: [facility]) 3. Hepatic steatosis. 4. Uncomplicated colonic diverticulosis. REFERENCES: [facility] CASTILLO, et al. Management of Incidental Adrenal Masses: A White Paper of the ACR Incidental Findings Committee. J Am Brooke Radiol. 2017;14(8):5509-3102. Dictated and Authenticated by: Tom Jeffers MD. Ordering:JUDY Henry MD
[2022-06-03] MEDS: Normal Saline 250 ML 500 ML IV (16:54)
== END 2022-06-03 17:26 | disposition home or self-care (01) ==
PROVIDERS: Emergency Provider Physician Assistant; PCP Family Medicine
DX: K64.4 Residual hemorrhoidal skin tags (principal); R14.0 Abdominal distension (gaseous); E66.9 Obesity, unspecified; R07.9 Chest pain, unspecified; F17.210 Nicotine dependence, cigarettes, uncomplicated; E27.8 Other specified disorders of adrenal gland
CPT/HCPCS: 36415; 36416; 71275; 74177; 80053; 82962; 83690; 93005; 96374; 99285; 83735; 84484; 85025; 93010; J0131; J3490